=== PATIENT | female | born 1960 | race Caucasian/White ===

== ENCOUNTER 2016-04-15 06:06 | Inpatient (IN) ==
--- NOTE | 2016-04-14 20:54 | Discharge Summary ---
<Janneth Chavez - Last Filed: 04/15/16 13:49> - Discharge Diagnosis (1) Left rotator cuff tear arthropathy Priority: Primary Status: Acute (2) Asthma Status: Chronic Qualifiers: Asthma severity: unspecified severity Asthma complication type: uncomplicated Qualified Code(s): J45.909 - Unspecified asthma, uncomplicated (3) Hyperlipidemia Status: Chronic Qualifiers: Hyperlipidemia type: unspecified Qualified Code(s): E78.5 - Hyperlipidemia , unspecified (4) Thyroid disease Status: Chronic (5) Tobacco abuse Status: Chronic - Discharge Medications Home Medications: BuPROPion XL (24 HR) [Wellbutrin Xl] 150 mg PO DAILY 03/23/16 [History] Loratadine [Allergy Relief] 10 mg PO DAILY 03/23/16 [History] Naproxen [Naprosyn] 500 mg PO BID 03/23/16 [History] OxyCODONE Immed Rel [Roxicodone 5 MG] 5 - 10 mg PO Q6HR PRN #40 tablet 04/14/16 [Rx] Albuterol Sulfate [Ventolin Hfa] 2 puff IH Q4H PRN 04/15/16 [History] Levothyroxine Sodium 100 mcg PO DAILY 04/15/16 [History] Mometasone Furoate [Asmanex] 2 puff IH BID 04/15/16 [History] Paroxetine [Paxil] 30 mg PO DAILY 04/15/16 [History] Ropinirole [Requip] 1 mg PO HS 04/15/16 [History] Simvastatin [Zocor] 20 mg PO DAILY 04/15/16 [History] Zolpidem [Ambien] 10 mg PO HS 04/15/16 [History] Allergies/Adverse Reactions: Allergies Hydromorphone [From Dilaudid] Adverse Reaction (Verified 04/15/16 07:17) itching, red, hot Primary care physician: Janett Mathis - Patient Status Disposition: Home, Self-Care Condition: Good - Discharge Instructions Follow Up With: Janett Mathis MD [Primary Care Provider] - - Hospital Course Hospital course: Ms. Holman is a 55 year old female - Time Spent with Patient Total time spent providing and/or coordinating discharge services: <Shahbaz Orellana - Last Filed: 04/16/16 06:44> Date of Encounter: 04/16/16 Time of Encounter: 06:43 - Discharge Diagnosis (1) Hyperlipidemia Priority: Secondary Status: Chronic Qualifiers: Hyperlipidemia type: unspecified Qualified Code(s): E78.5 - Hyperlipidemia , unspecified (2) Tobacco abuse Priority: Secondary Status: Chronic (3) Asthma Priority: Secondary Status: Chronic Qualifiers: Asthma severity: unspecified severity Asthma complication type: uncomplicated Qualified Code(s): J45.909 - Unspecified asthma, uncomplicated (4) Thyroid disease Priority: Secondary Status: Chronic (5) Left rotator cuff tear arthropathy Priority: Primary Status: Acute Primary care physician: Janett Mathis - Patient Status Functional capacity at discharge: independent ambulation Overall status at discharge: patient is progressing back to baseline - Hospital Course Hospital course: Ms. Holman is a 55 year old female The patient had an uneventful postoperative course. They received antibiotics and physical therapy and were discharged in stable condition. There will follow -up in the office in 2 weeks. - Time Spent with Patient Total time spent providing and/or coordinating discharge services:
[2016-04-15] MEDS ORDERED: Albuterol 2.5 MG/3 ML NEBULIZER IH ONE (06:23)
[2016-04-15] MEDS ORDERED: CeFAZolin Pre 2,000 MG/100 ML 2,000 MG/100 ML BAG IVPB ONE (06:23)
--- NOTE | 2016-04-15 06:46 | History & Physical Report ---
Date of Encounter: 04/15/16 Time of Encounter: 06:46 24 Hour HP Update - Instructions Instructions: If the History and Physical is less than 30 days old and was completed prior to A.M. admission and or procedure and has NOT been updated on calendar day of procedure please complete this update prior to performing procedure. - Update Patient reports changes in Medical Condition: No Changes in assessment/condition: No Changes in Medication: No Preop tests/diagnostics Reviewed: Yes Surgery Remains Indicated: Yes Consent for Planned Operative Procedure(s) Verified: Yes - Pre-Operative Checklist Preoperative Checklist Indicated: No Prophylactic Antibiotic Ordered: Yes Is VTE Prophylaxis Indicated?: Yes
--- NOTE | 2016-04-15 06:54 | Anesthesia Evaluation PreOp ---
Date of Encounter: 04/15/16 Time of Encounter: 06:52 - Past History Planned Operation: L TSR reverse Cardiac History: Hyperlipidemia Pulmonary History: Smoker, Pack/yr (15), Asthma, Other (pft: 10/26. fvc 99, fev1 84) GORE STITCHER History: Other (lumbar ddd, ptsd, anxiety, depression) Other Medical History: Thyroid Anesthesia History: No Prior Anesthetic Complications, Past Anesthesia (d&c, btl , ctr,leep, dx laparoscopy) Alcohol Use: occasionally Drug use: none Medications and Allergies BuPROPion XL (24 HR) [Wellbutrin XL] 150 mg PO DAILY 03/23/16 [History] Levothyroxine [Synthroid] 88 mcg PO 0630 03/23/16 [History] Loratadine [Allergy Relief] 10 mg PO DAILY 03/23/16 [History] Naproxen [Naprosyn] 500 mg PO BID 03/23/16 [History] Paroxetine HCl [Paxil] 20 mg PO DAILY 03/23/16 [History] Simvastatin [Zocor] 40 mg PO HS 03/23/16 [History] OxyCODONE Immed Rel [Roxicodone 5 MG] 5 - 10 mg PO Q6HR PRN #40 tablet 04/14/16 [Rx] Allergies tramadol Allergy (Verified 03/23/16 12:47) Hives - Meds/Allergy Pre-op Review Medications Reviewed: Yes Allergies Reviewed: Yes Beta Blockers on Current Med List: No Anesthesia Results - Labs Laboratory Tests 04/05/16 04/05/16 04/05/16 10:54 10:54 10:54 Hgb 14.5 Hct 40.8 Plt Count 309 PT 11.6 INR 1.1 APTT 41.9 H Sodium 134 L Potassium 4.8 H Creatinine 0.65 - Imaging EKG: report reviewed (sr) Anesthesia Exam O2 Sat Height 1.63 m Height 1.63 m Height 1.63 m Weight 64.41 kg Weight 64.41 kg Weight 64.41 kg O2 Sat by Pulse Oximetry 94 O2 Sat by Pulse Oximetry 94 O2 Sat by Pulse Oximetry 94 Vital Signs Temp Pulse Resp BP Pulse Ox 97.8 F 70 18 119/73 94 L 04/15/16 06:30 04/15/16 06:30 04/15/16 06:30 04/15/16 06:30 04/15/16 06:30 Height: 1.63 Weight: 64 NPO (# of Hours): >8 - HEENT Pupil (Motor): Pupils equal, EOMI Mallampati: I Teeth: Edentulous Denture Type: Upper: Complete, Lower: Complete Oral Opening: Greater than 3 - GORE STITCHER LOC: Oriented GORE STITCHER Motor: Normal RUE, Normal LUE, Normal RLE, Normal LLE, Normal Face GORE STITCHER Sensory: Normal: RUE, LUE, RLE, LLE, Face - Cardiac Rhythm: Regular Murmur: None - Pulmonary Breath Sounds: bilateral Clear Respiratory Effort: Symmetrical Anesthesia Assess/Plan ASA Score: 2 Modified Alicia Scale for Level of Consciousness: Cooperative, oriented, and tranquil Anesthetic Plan: General, Regional Monitoring Plan: Standard Monitors Recovery Plan: PACU
[2016-04-15] MEDS ORDERED: *HR* Magnesium Sulfate 2 GM/50 ML PIGGYBACK IVPB ONE (07:02)
[2016-04-15] MEDS ORDERED: Tetracaine/PF 20 MG/2 ML AMPUL SPINA ONE (07:11)
[2016-04-15] MEDS ORDERED: ROPIVACAINE HCL/PF 0.5% 30 ML VIAL ONE (07:11)
[2016-04-15] MEDS ORDERED: Bupivacaine/EPI 1:200k 0.25%PF 10 ML VIAL INFILT ONE (07:11)
[2016-04-15] MEDS ORDERED: CloNIDine Patch 0.1 MG PATCH (WEEKLY) TD SCH (07:15)
[2016-04-15] MEDS ORDERED: *HR* Midazolam HCl 2 MG/2 ML VIAL ONE (07:24)
[2016-04-15] MEDS ORDERED: *HR* Propofol 200 MG/20 ML VIAL IVP ONE (07:25)
[2016-04-15] MEDS ORDERED: *HR* FentaNYL (PF) 100 MCG/2 ML VIAL IVP PRN (07:26)
[2016-04-15] MEDS ORDERED: *HR* Morphine 2 MG/ML SYRINGE IVP PRN (07:26)
[2016-04-15] MEDS ORDERED: *HR* Promethazine 25 MG/ML VIAL IVP PRN (07:26)
[2016-04-15] MEDS ORDERED: Magnesium Sulfate 2 GM/100 ML PIGGYBACK IVPB SCH (07:30)
[2016-04-15] MEDS ORDERED: Dexamethasone 4 MG/ML VIAL ONE (08:00)
[2016-04-15] MEDS ORDERED: Ondansetron 4 MG/2 ML VIAL ONE (08:00)
[2016-04-15] MEDS ORDERED: *HR* FentaNYL (PF) 100 MCG/2 ML VIAL ONE (08:04)
[2016-04-15] MEDS: Ringers Solution, Lactated 1,000 ML IVC SCH ×4 (08:09→15:31)
--- NOTE | 2016-04-15 08:09 | Anesthesia Procedures ---
Date of Encounter: 04/15/16 Time of Encounter: 07:35 Procedures: Anesthesia - Nerve Block Procedure Date: 04/15/16 Time: 07:35 Surgical Procedure: left total shoulder Checklist: Correct Patient Identifier, Correct procedure, History checked Correct side: Left Blood Thinner: No Monitor Applied: EKG, BP, Pulse Oximetry Supplemental Oxygen via Nasal Cannula (L/min): 2 Sedation: Versed (mg): 4 Indication: Post Op Analgesia Block Type: Interscalene (SCP) Catheter placed: No Sterile Technique: Yes Ultrasound used: Yes Anatomy identified: Yes Visual spread of Local: Yes Neuro Stimulation: No Blood on Needle Aspiration: No Smooth Injection of Local: Yes Pain with Injection of Local: Yes Prep: Chlorhexadine Needle: 22 x 50 mm Stimuplex Local: Ropivacaine, Other (20mg tetracaine, .25% bup with epi 10ml, 30ml 0.5 rop ) Volume (cc): 35 Number of Attempts: 2 Complications: None/effective block Vitals: vss, block per request of surgeon
[2016-04-15] MEDS ORDERED: *HR* Phenylephrine 10 MG/ML VIAL ONE (08:12)
--- NOTE | 2016-04-15 08:29 | Orthopedic Operative Note ---
Date of procedure: 04/15/16 Pre-op diagnosis: Left shoulder cuff tear arthropathy Post-op diagnosis: same Procedure: Procedure: Left Total Shoulder Replacment Reverse Estimated blood loss: 100 cc Hardware:Arthrex small glenoid baseplate, 2 4.5 screws. 1 6.5 screw, 36 lateral glenosphere, 7 humeral stem, 6 poly insert Exam Under anesthesia: Full motion and stability Procedural Notes: Irreparable subscap and supraspinatus tendon tears Operative procedure: The patient was brought to the operating room and placed on the operating room table. After general anesthesia was administered the operative shoulder was examined. Findings were noted. The patient was placed in the modified beachchair position. All pressure points were padded appropriately. And the head was stabilized in the neutral position. The operative extremity was prepped and draped in the sterile surgical fashion. The patient received IV antibiotics prior to skin incision. A standard deltopectoral approach was made to the operative shoulder. Incision was made to the skin and subcutaneous tissue,hemo stasis was obtained with Bovie cautery. Using careful blunt dissection the cephalic vein was identified and mobilized medially. The deltopectoral interval was developed and the clavipectoral fascia was incised. The subscap was irreparable. The humerus was dislocated osteophytes were present were removed and the humeral cut was made along the anatomic neck. Anterior and posterior Bankart retractors were placed to expose the glenoid. The glenoid guide was seated and the centering hole was made. It was reamed with the appropriate reamer. The small baseplate was seated and secured with (2) 4.5 screws and one 6.5 screw. The baseplate was irrigated and dried and the 36 lateral was seated and secured with the Gilliam taper. The Gilliam taper was tested and found to be secure the humerus was redislocated and prepared with the diaphyseal reamers, followed by a broaching process up to the appropriate size 7 in the patient's anatomic version. The metaphyseal reamer was then utilized. Trial reduction found the shoulder to be relocatable. Trial components were removed and the #7 stem was impacted in place in the patient's anatomic version. Trial reduction found the shoulder to be relocatable and stable with the 6 Connie. Trial component was removed and the real 6 Connie was seated and secured the shoulder was reduced. The shoulder had excellent motion and excellent stability and no evidence of dislocation. The deep tissue was irrigated with pulse irrigation. The deltopectoral interval was closed with a running #1 PDS suture, subcutaneous tissue was irrigated and closed with 0 PDS suture, the skin was closed with Dermabond. The patient was placed in a sterile dressing, abduction brace and extubated. The patient was then transferred to the recovery room in stable condition. Anesthesia: ZUNILDA Surgeon: Shahbaz Orellana Filling Machine Tender: Janneth Chavez Condition: stable Disposition: PACU
[2016-04-15] MEDS ORDERED: *HR* Morphine 10 MG/ML VIAL ONE (08:44)
[2016-04-15] MEDS ORDERED: *HR* Meperidine 25 MG/ML SYRINGE ONE (08:48)
[2016-04-15 09:17] LABS: Hematocrit 39.7 % (35.3-44.9); Hemoglobin 14.1 g/dL (11.5-15.4)
--- NOTE | 2016-04-15 09:21 | Anesthesia Evaluation Post Op ---
Date of Encounter: 04/15/16 Time of Encounter: 09:20 - Vital Signs Vital Signs: Vital Signs/O2 Sat/Glucose, Most Current Temp Pulse Resp BP Pulse Ox 04/15/16 09:11 98.2 F 93 16 157/96 93 L 04/15/16 09:01 98 16 146/76 94 L 04/15/16 08:51 94 16 177/93 92 L 04/15/16 08:41 97.0 F L 99 18 160/96 95 04/15/16 07:33 75 122/76 96 04/15/16 06:37 97.8 F 70 18 119/73 94 L 04/15/16 06:30 97.8 F 70 18 119/73 94 L - Lungs Lungs: Clear Ascult./Percussion - Airway Airway: Non-obstructed - Cardiovascular Regular Rate - Mental Status Mental Status: Asleep with brisk response to light stimulation - Pain Pain Scale: 4 (cannot feel fingers though) - Nausea Vomiting Nausea Vomiting: Not Present - Hydration Hydration: NPO - Discharge PostOp Status: Transfer Patient to floor
[2016-04-15] MEDS ORDERED: MOM Conc 10 ML UD.LIQ PO PRN (10:03)
[2016-04-15] MEDS ORDERED: *HR* OxyCODONE Immed Rel 5 MG TABLET PO PRN (10:03)
[2016-04-15] MEDS ORDERED: Sennosides 8.6 MG TABLET PO PRN (10:03)
[2016-04-15] MEDS ORDERED: Ondansetron 4 MG/2 ML VIAL IVP PRN (10:03)
[2016-04-15] MEDS ORDERED: Naloxone 0.4 MG/ML INJ IVP PRN (10:03)
[2016-04-15] MEDS ORDERED: Albuterol Neb 1.25 MG/3 ML VIAL IH ONE (10:03)
[2016-04-15] MEDS ORDERED: Temazepam 15 MG CAPSULE PO PRN (10:03)
[2016-04-15] MEDS ORDERED: Acetaminophen 325 MG TABLET PO PRN (10:03)
[2016-04-15] MEDS: BuPROPion XL (24 HR) 150 MG TABLET PO SCH (11:18)
[2016-04-15] MEDS: Loratadine 10 MG TABLET PO SCH (11:18)
[2016-04-15] MEDS: MOMETASONE FUROATE IH SCH ×2 (11:19→21:21)
[2016-04-15] MEDS: *HR* OxyCODONE Immed Rel 5 MG TABLET PO PRN (12:51)
[2016-04-15] MEDS: *HR* Morphine 2 MG/ML SYRINGE IVP PRN ×2 (15:30→20:12)
[2016-04-15] MEDS: ceFAZolin 2,000 MG in D5% in Water 100 ML IVPB SCH ×2 (16:16→23:33)
[2016-04-15] MEDS ORDERED: *HR* Enoxaparin 30 MG/0.3 ML SYRINGE SQ SCH (18:00)
[2016-04-15] MEDS: *HR* Enoxaparin 30 MG/0.3 ML SYRINGE SQ SCH (18:16)
[2016-04-15] MEDS ORDERED: rOPINIRole 1 MG TABLET PO SCH (21:00)
[2016-04-16] MEDS: *HR* OxyCODONE Immed Rel 5 MG TABLET PO PRN ×3 (02:52→11:13)
[2016-04-16] MEDS: *HR* Enoxaparin 30 MG/0.3 ML SYRINGE SQ SCH (05:58)
[2016-04-16 06:14] LABS: Hematocrit 34.5 % (35.3-44.9)
[2016-04-16 06:35] VITALS: BP 151/89
--- NOTE | 2016-04-16 06:44 | Orthopedics Progress Note ---
Date of Encounter: 04/16/16 Time of Encounter: 06:44 - Assessment and Plan (1) Hyperlipidemia Current Visit: Yes Status: Chronic Qualifiers: Hyperlipidemia type: unspecified Qualified Code(s): E78.5 - Hyperlipidemia , unspecified (2) Tobacco abuse Current Visit: Yes Status: Chronic (3) Asthma Current Visit: Yes Status: Chronic Qualifiers: Asthma severity: unspecified severity Asthma complication type: uncomplicated Qualified Code(s): J45.909 - Unspecified asthma, uncomplicated (4) Thyroid disease Current Visit: Yes Status: Chronic (5) Left rotator cuff tear arthropathy Current Visit: Yes Status: Acute Subjective Interval history: Patient was seen this morning doing well without complaints. Afebrile vital signs stable. Operative extremity: Neurovascularly intact Dressing clean dry and intact Calves nontender Assessment and plan: Continue with postoperative care Discharged today Objective Vital signs: Vital Signs Temp Pulse Resp BP Pulse Ox 04/16/16 06:34 98.4 F 94 18 151/89 93 L 04/16/16 04:10 98.3 F 75 13 149/79 93 L 04/15/16 23:23 98.6 F 74 15 123/75 92 L 04/15/16 20:17 94 L 04/15/16 19:08 98.6 F 74 15 112/71 94 L 04/15/16 15:39 98.0 F 68 16 104/66 97 04/15/16 15:24 115/63 96 04/15/16 12:49 97.6 F 79 14 122/70 91 L 04/15/16 11:50 97.8 F 78 16 133/92 93 L 04/15/16 11:09 16 95 04/15/16 10:50 97.7 F 83 16 146/78 100 04/15/16 10:20 98.0 F 90 16 138/84 94 L 04/15/16 09:50 97.4 F L 90 16 147/88 96 04/15/16 09:21 98.2 F 93 16 136/82 93 L 04/15/16 09:11 98.2 F 93 16 157/96 93 L 04/15/16 09:01 98 16 146/76 94 L 04/15/16 08:51 94 16 177/93 92 L 04/15/16 08:41 97.0 F L 99 18 160/96 95 04/15/16 07:33 75 122/76 96 Intake and Output 04/15/16 04/15/16 04/16/16 15:59 23:59 07:59 Intake Total 1620 / 1620 220 / 220 100 / 100 Output Total 100 / 100 650 / 650 Balance 1520 / 1520 -430 / -430 100 / 100 Intake: IV Fluids 1500 / 1500 100 / 100 100 / 100 Lactated Ringers 1,000 ML 1400 / 1400 @ 25 mls/hr IVC .Q24H DANE Rx#:[id number] Ancef 2,000 MG In 100 / 100 100 / 100 Dextrose 5% 100 ML @ 200 mls/hr IVPB Q8HR DANE Rx#: [id number] Ancef Premix 2,000 MG/100 100 / 100 ML 2,000 mg In 100 ml @ 200 mls/hr IVPB PREOP ONE Rx#:[id number] Oral 120 / 120 120 / 120 Output: Urine 650 / 650 Estimated Blood Loss 100 / 100 Other: Meal Lunch Dinner Percent of Meal Consumed 75% 50% # Voids 1 - Labs CBC & BMP: 04/16/16 05:26 Labs: Abnormal lab results Hct 34.5 % (35.3-44.9) L 04/16/16 05:26 - VTE Documentation of Mechanical Device: Venous foot pump, device Consult Discharge Plan - Plan Referrals: Janett Mathis MD [Primary Care Provider] -
[2016-04-16] MEDS ORDERED: FLU VACC QS2016-17 36MOS UP/PF 0.5 ML SYRINGE IM ONE (10:54)
[2016-04-16] MEDS: MOMETASONE FUROATE IH SCH (11:13)
[2016-04-16] MEDS: Loratadine 10 MG TABLET PO SCH (11:13)
[2016-04-16] MEDS: BuPROPion XL (24 HR) 150 MG TABLET PO SCH (11:13)
== END 2016-04-16 11:30 | disposition home or self-care (01) | DRG 315 ==
LOC: SAMDAY 06:06 → 3NENU 09:54
PROVIDERS: ADMIT Orthopaedic Surgery; ATTEND Orthopaedic Surgery

== ENCOUNTER 2019-03-19 08:01 | Observation (INO) ==
[2019-03-19] MEDS ORDERED: Isovue-370 500 ML BOTTLE IVP ONE (09:01)
[2019-03-19] MEDS ORDERED: *HR* HYDROcodone/Acet 5/325 mg TABLET PO PRN (09:46)
[2019-03-19] MEDS ORDERED: Albuterol 2.5 MG/3 ML NEBULIZER IH PRN ×2 (09:46→20:36)
[2019-03-19 10:11] LABS: Basophils # 0.1 K/mcL (0.0-0.2); Basophils % 1.4 %; Eosinophils # 0.2 K/mcL (0.0-0.6); Eosinophils % 3.3 %; Hematocrit 44.9 % (35.3-44.9); Hemoglobin 16.3 g/dL (11.5-15.4); Immature Granulocytes % 0.4 % (0-4); Lymphocytes % 26.9 %; Mean Corpuscular HGB Conc 36.3 g/dL (31.6-35.5); Mean Corpuscular Hemoglobin 33.6 pg (28.0-33.3); Mean Corpuscular Volume 92.6 fL (83.0-100.0); Mean Platelet Volume 9.4 fL (9.4-12.4); Monocytes # 0.5 K/mcL (0.0-1.3); Monocytes % 7.2 %; Neutrophils # 4.5 K/mcL (1.6-8.9); Platelet Count 335 K/mcL (140-400); Red Blood Count 4.85 M/mcL (3.82-4.97); Red Cell Distribution Width 13.2 % (11.5-14.5); Segmented Neutrophils % 60.8 %; White Blood Count 7.3 K/mcL (4.3-11.1)
[2019-03-19 10:17] LABS: BUN/Creatinine Ratio 9 (6-26); Blood Urea Nitrogen 5 mg/dL (8-23); Calcium 10.1 mg/dL (8.6-10.3); Carbon Dioxide 23 mEq/L (23-29); Chloride 97 mEq/L (98-107); Glucose 92 mg/dL (70-105); Osmolality,Calculated 269 (280-300); Potassium 4.3 mEq/L (3.5-5.1); Sodium 131 mEq/L (136-145); eGFR For African Americans > 60 (> 60); eGFR For Non-African Americans > 60 (> 60)
[2019-03-19 10:34] LABS: C-Reactive Protein 6 mg/L (Less than 10)
[2019-03-19] MEDS ORDERED: *HR* Midazolam HCl 2 MG/2 ML VIAL ONE (18:09)
[2019-03-19] MEDS ORDERED: *HR* FentaNYL (PF) 100 MCG/2 ML VIAL ONE ×2 (18:09→18:59)
[2019-03-19] MEDS ORDERED: Dexamethasone 4 MG/ML VIAL ONE (18:10)
[2019-03-19] MEDS ORDERED: Ondansetron 4 MG/2 ML VIAL ONE (18:10)
[2019-03-19] MEDS ORDERED: *HR* Propofol 200 MG/20 ML VIAL IVP ONE (18:10)
[2019-03-19] MEDS ORDERED: Lidocaine -MPF 2% 2 ML VIAL ONE (18:10)
[2019-03-19] MEDS ORDERED: Piperacillin/Tazobactam 3.375 GM in 0.9 % Sodium Chloride Mini Bag 100 ML IVPB SCH (19:00)
[2019-03-19] MEDS: Morphine Sulfate 2 MG/ML SYRINGE IVP PRN ×5 (19:21→19:56)
[2019-03-19] MEDS ORDERED: Ondansetron 4 MG/2 ML VIAL IVP ONE (19:38)
[2019-03-19] MEDS ORDERED: *HR* OxyCODONE Immed Rel 5 MG TABLET PO STA (19:39)
[2019-03-19] MEDS: Ondansetron 4 MG/2 ML VIAL IVP ONE ×2 (19:41→20:38)
[2019-03-19] MEDS ORDERED: *HR* FentaNYL (PF) 100 MCG/2 ML VIAL IVP PRN (19:45)
[2019-03-19] MEDS: *HR* HYDROcodone/Acet 5/325 mg TABLET PO PRN (21:19)
[2019-03-20 01:26] LABS: Basophils % 0.5 %; Eosinophils % 0.2 %; Hematocrit 39.6 % (35.3-44.9); Immature Granulocytes % 0.7 % (0-4); Lymphocytes # 0.5 K/mcL (0.6-4.6); Lymphocytes % 11.9 %; Mean Corpuscular HGB Conc 36.1 g/dL (31.6-35.5); Mean Corpuscular Hemoglobin 33.9 pg (28.0-33.3); Mean Corpuscular Volume 93.8 fL (83.0-100.0); Mean Platelet Volume 9.7 fL (9.4-12.4); Monocytes # 0.1 K/mcL (0.0-1.3); Monocytes % 1.6 %; Neutrophils # 3.6 K/mcL (1.6-8.9); Platelet Count 264 K/mcL (140-400); Red Blood Count 4.22 M/mcL (3.82-4.97); Red Cell Distribution Width 13.3 % (11.5-14.5); Segmented Neutrophils % 85.1 %; White Blood Count 4.3 K/mcL (4.3-11.1)
[2019-03-20 01:27] LABS: Hemoglobin 14.3 g/dL (11.5-15.4)
[2019-03-20] MEDS: Piperacillin/Tazobactam 3.375 GM in 0.9 % Sodium Chloride Mini Bag 100 ML IVPB SCH ×3 (03:05→18:34)
[2019-03-20] MEDS: *HR* HYDROcodone/Acet 5/325 mg TABLET PO PRN (03:06)
[2019-03-20 03:11] LABS: BUN/Creatinine Ratio 11 (6-26); Blood Urea Nitrogen 7 mg/dL (8-23); Carbon Dioxide 23 mEq/L (23-29); Chloride 102 mEq/L (98-107); Glucose 235 mg/dL (70-105); Osmolality,Calculated 278 (280-300); Potassium 4.3 mEq/L (3.5-5.1); Sodium 131 mEq/L (136-145); eGFR For African Americans > 60 (> 60); eGFR For Non-African Americans > 60 (> 60)
[2019-03-20] MEDS ORDERED: Acetaminophen 325 MG TABLET PO PRN (10:01)
[2019-03-20] MEDS ORDERED: 0.9 % Sodium Chloride Mini Bag 100 ML ONE (11:18)
[2019-03-20] MEDS: *HR* OxyCODONE/APAP 5/325 TABLET PO PRN ×2 (14:33→20:48)
[2019-03-20] MEDS: rOPINIRole 1 MG TABLET PO SCH (20:48)
[2019-03-20] MEDS: *HR* OxyCODONE Immed Rel 5 MG TABLET PO PRN (22:59)
[2019-03-21] MEDS: *HR* OxyCODONE/APAP 5/325 TABLET PO PRN ×3 (03:13→21:46)
[2019-03-21] MEDS: Piperacillin/Tazobactam 3.375 GM in 0.9 % Sodium Chloride Mini Bag 100 ML IVPB SCH ×3 (03:14→18:18)
[2019-03-21 07:03] LABS: BUN/Creatinine Ratio 9 (6-26); Blood Urea Nitrogen 6 mg/dL (8-23); Calcium 8.8 mg/dL (8.6-10.3); Carbon Dioxide 26 mEq/L (23-29); Chloride 104 mEq/L (98-107); Glucose 108 mg/dL (70-105); Osmolality,Calculated 284 (280-300); Potassium 4.3 mEq/L (3.5-5.1); Sodium 138 mEq/L (136-145); eGFR For African Americans > 60 (> 60); eGFR For Non-African Americans > 60 (> 60)
[2019-03-21] MEDS: *HR* OxyCODONE Immed Rel 5 MG TABLET PO PRN ×2 (08:26→18:44)
[2019-03-21 09:58] LABS: Basophils # 0.1 K/mcL (0.0-0.2); Eosinophils # 0.1 K/mcL (0.0-0.6); Eosinophils % 1.4 %; Hemoglobin 13.7 g/dL (11.5-15.4); Immature Granulocytes % 0.4 % (0-4); Lymphocytes # 2.1 K/mcL (0.6-4.6); Lymphocytes % 41.9 %; Mean Corpuscular HGB Conc 35.1 g/dL (31.6-35.5); Mean Corpuscular Hemoglobin 33.8 pg (28.0-33.3); Mean Corpuscular Volume 96.3 fL (83.0-100.0); Mean Platelet Volume 9.5 fL (9.4-12.4); Monocytes # 0.3 K/mcL (0.0-1.3); Neutrophils # 2.4 K/mcL (1.6-8.9); Platelet Count 236 K/mcL (140-400); Red Blood Count 4.05 M/mcL (3.82-4.97); Red Cell Distribution Width 13.1 % (11.5-14.5); Segmented Neutrophils % 48.3 %; White Blood Count 4.9 K/mcL (4.3-11.1)
[2019-03-21] MEDS: rOPINIRole 1 MG TABLET PO SCH (20:17)
[2019-03-21] MEDS ORDERED: *HR* Promethazine 25 MG/ML VIAL IVP ONE (22:22)
[2019-03-22] MEDS: Piperacillin/Tazobactam 3.375 GM in 0.9 % Sodium Chloride Mini Bag 100 ML IVPB SCH ×2 (03:10→11:12)
[2019-03-22] MEDS: *HR* OxyCODONE/APAP 5/325 TABLET PO PRN (04:55)
[2019-03-22] MEDS ORDERED: *HR* Enoxaparin 40 MG/0.4 ML SYRINGE SQ SCH (06:00)
[2019-03-22 06:25] LABS: Hematocrit 41.5 % (35.3-44.9); Hemoglobin 14.3 g/dL (11.5-15.4); Mean Corpuscular HGB Conc 34.5 g/dL (31.6-35.5); Mean Corpuscular Hemoglobin 33.5 pg (28.0-33.3); Mean Corpuscular Volume 97.2 fL (83.0-100.0); Mean Platelet Volume 9.6 fL (9.4-12.4); Platelet Count 222 K/mcL (140-400); Red Blood Count 4.27 M/mcL (3.82-4.97); Red Cell Distribution Width 12.9 % (11.5-14.5); White Blood Count 5.2 K/mcL (4.3-11.1)
[2019-03-22 06:47] LABS: BUN/Creatinine Ratio 10 (6-26); Blood Urea Nitrogen 6 mg/dL (8-23); Calcium 9.4 mg/dL (8.6-10.3); Carbon Dioxide 24 mEq/L (23-29); Chloride 98 mEq/L (98-107); Glucose 109 mg/dL (70-105); Osmolality,Calculated 274 (280-300); Potassium 4.1 mEq/L (3.5-5.1); Sodium 133 mEq/L (136-145); eGFR For African Americans > 60 (> 60); eGFR For Non-African Americans > 60 (> 60)
[2019-03-22] MEDS: *HR* OxyCODONE Immed Rel 5 MG TABLET PO PRN ×2 (11:19→18:23)
[2019-03-22 14:16] VITALS: BP 144/82
[2019-03-22] MEDS ORDERED: FLU Vac QV 19-20 (6Month+)/PF 0.5 ML SYRINGE IM ONE (17:56)
[2019-03-22] MEDS ORDERED: Aminoglycoside Consult 1 EACH MC ONE (18:48)
[2019-03-23] MEDS ORDERED: BuPROPion XL (24 HR) 150 MG TABLET PO SCH (09:00)
== END 2019-03-22 18:49 | disposition home or self-care (01) ==
LOC: 3ANU → SUATTDRO 09:03
PROVIDERS: ADMIT Internal Medicine; ATTEND Internal Medicine